=== PATIENT | male | born 1960 | race Caucasian/White ===

== ENCOUNTER → 2016-08-17 | Outpatient (CLI) | payer BC ==
[~2016-08-17] MED LIST: ALEV220C2 PO; CIPR500T89 PO; EXTR500C4 PO; HYDR-3713 PO; HYDR10TAB PO; ISOS60TA2 PO; NICO14PA TD; OXYC-517 PO; PROBCAP4 PO
== END ==
LOC: M HL 13:50
PROVIDERS: ATTEND Nurse Practitioner Family
DX: E11.8 Type 2 diabetes mellitus with unspecified complications (principal)

== ENCOUNTER → 2017-03-12 | Outpatient (CLI) | payer BC ==
[~2017-03-12] MED LIST changes: +CIPR-249 PO; -CIPR500T89 PO
[2017-03-12 08:20] LABS: ALBUMIN 3.7 GM/DL (3.2-5.2); ALBUMIN/GLOBULIN RATIO 1.12 (1.00-1.93); ALKALINE PHOSPHATASE 95 U/L (45-117); ALT/SGPT 40 U/L (12-78); ANION GAP 7 MEQ/L (8-16); AST/SGOT 25 U/L (15-37); BILIRUBIN,TOTAL 0.3 MG/DL (0.2-1.0); BLOOD UREA NITROGEN 21 MG/DL (7-18); CALCIUM LEVEL 9.7 MG/DL (8.5-10.1); CARBON DIOXIDE LEVEL 26 MEQ/L (21-32); CHLORIDE LEVEL 108 MEQ/L (98-107); CHOLESTEROL LEVEL 118 MG/DL (<200); CREATININE FOR GFR 0.73 MG/DL (0.70-1.30); GLOMERULAR FILTRATION RATE > 60.0 (>56); GLUCOSE, FASTING 82 MG/DL (70-105); POTASSIUM SERUM 4.2 MEQ/L (3.5-5.1); SODIUM LEVEL 141 MEQ/L (136-145); TRIGLYCERIDES LEVEL 47 MG/DL (<150)
== END ==
LOC: M LAB 07:15
PROVIDERS: ATTEND Nurse Practitioner Family
DX: E11.8 Type 2 diabetes mellitus with unspecified complications (principal)

== ENCOUNTER → 2017-05-30 | Outpatient (CLI) | payer BC ==
[2017-05-30 09:16] LABS: ALBUMIN 3.7 GM/DL (3.2-5.2); ALBUMIN/GLOBULIN RATIO 1.06 (1.00-1.93); ALKALINE PHOSPHATASE 109 U/L (45-117); ALT/SGPT 38 U/L (12-78); ANION GAP 7 MEQ/L (8-16); AST/SGOT 23 U/L (7-37); BILIRUBIN,TOTAL 0.3 MG/DL (0.2-1.0); BLOOD UREA NITROGEN 18 MG/DL (7-18); CALCIUM LEVEL 10.7 MG/DL (8.5-10.1); CARBON DIOXIDE LEVEL 29 MEQ/L (21-32); CHLORIDE LEVEL 107 MEQ/L (98-107); CREATININE FOR GFR 0.75 MG/DL (0.70-1.30); GLOMERULAR FILTRATION RATE > 60.0 (>56); GLUCOSE, FASTING 84 MG/DL (70-105); POTASSIUM SERUM 4.3 MEQ/L (3.5-5.1); SODIUM LEVEL 143 MEQ/L (136-145); TOTAL PROTEIN 7.2 GM/DL (6.4-8.2)
== END ==
LOC: M LAB 07:09
PROVIDERS: ATTEND Nurse Practitioner Family
DX: E11.9 Type 2 diabetes mellitus without complications (principal); E55.9 Vitamin D deficiency, unspecified

== ENCOUNTER → 2018-04-06 | Outpatient (CLI) | payer BC ==
[2018-04-06 11:04] LABS: ALBUMIN 3.8 GM/DL (3.2-5.2); ALBUMIN/GLOBULIN RATIO 1.19 (1.00-1.93); ALKALINE PHOSPHATASE 97 U/L (45-117); ALT/SGPT 48 U/L (12-78); ANION GAP 6 MEQ/L (8-16); BILIRUBIN,TOTAL 0.4 MG/DL (0.2-1.0); BLOOD UREA NITROGEN 18 MG/DL (7-18); CALCIUM LEVEL 10.2 MG/DL (8.5-10.1); CARBON DIOXIDE LEVEL 31 MEQ/L (21-32); CHLORIDE LEVEL 105 MEQ/L (98-107); CHOLESTEROL LEVEL 106 MG/DL (<200); CHOLESTEROL RISK RATIO 1.709 (<5); CREATININE FOR GFR 0.74 MG/DL (0.70-1.30); FREE T4 0.83 NG/DL (0.76-1.46); GLOMERULAR FILTRATION RATE > 60.0 (>56); GLUCOSE, FASTING 89 MG/DL (70-100); HDL CHOLESTEROL 62 MG/DL (>40); LDL CHOLESTEROL 33 MG/DL (<100); NON-HDL-C 44 MG/DL; SODIUM LEVEL 142 MEQ/L (136-145); THYROID STIMULATING HORMONE 0.968 uIU/ML (0.358-3.740); TOTAL 25(OH) VITAMIN D 53.2 NG/ML (30.0-100.0); TRIGLYCERIDES LEVEL 53 MG/DL (<150)
[2018-04-06 11:14] LABS: MALB URINE SIEMENS 26.6 MG/L
[2018-04-06 11:29] LABS: MAU/CREAT RATIO 22.5 MCG/MG (0.0-30.0)
[2018-04-06 11:30] LABS: ESTIMATED AVERAGE GLUCOSE 128 MG/DL (60-110); HEMOGLOBIN A1c 6.1 %
[2018-04-06 11:35] LABS: AST/SGOT 29 U/L (7-37); POTASSIUM SERUM 5.1 MEQ/L (3.5-5.1)
== END ==
LOC: M LAB 08:23
DX: E11.9 Type 2 diabetes mellitus without complications (principal); E78.00 Pure hypercholesterolemia, unspecified; E55.9 Vitamin D deficiency, unspecified
CPT/HCPCS: 84443

== ENCOUNTER → 2018-04-20 | Outpatient (REF) ==
[2018-04-23 14:07] LABS: QuantiFERON-TB Gold Plus Positive (Negative)
== END ==
LOC: M LAB 16:19
DX: Z02.89 Encounter for other administrative examinations (principal)

== ENCOUNTER → 2018-05-05 | Outpatient (CLI) | payer BC | LOC: M RAD 09:02 | DX: R76.11 Nonspecific reaction to tuberculin skin test without active tuberculosis (principal) | CPT/HCPCS: 71046 ==

== ENCOUNTER → 2018-11-09 | Outpatient (CLI) | payer BC ==
[~2018-11-09] MED LIST changes: +HYDR-2773 PO; -HYDR10TAB PO
[2018-11-09 07:27] LABS: ALBUMIN 3.7 GM/DL (3.2-5.2); ALT/SGPT 38 U/L (12-78); BILIRUBIN,TOTAL 0.6 MG/DL (0.2-1.0); BLOOD UREA NITROGEN 14 MG/DL (7-18); CALCIUM LEVEL 10.3 MG/DL (8.5-10.1); CARBON DIOXIDE LEVEL 28 MEQ/L (21-32); CHLORIDE LEVEL 107 MEQ/L (98-107); CREATININE FOR GFR 0.85 MG/DL (0.70-1.30); GLOMERULAR FILTRATION RATE > 60.0 (>56); GLUCOSE, FASTING 95 MG/DL (70-100); POTASSIUM SERUM 4.7 MEQ/L (3.5-5.1); SODIUM LEVEL 139 MEQ/L (136-145); TOTAL PROTEIN 7.6 GM/DL (6.4-8.2)
[2018-11-09 07:35] LABS: HEMOGLOBIN A1c 6.6 %
== END ==
LOC: M LAB 06:17
PROVIDERS: ATTEND Nurse Practitioner Family
DX: E11.9 Type 2 diabetes mellitus without complications (principal); E55.9 Vitamin D deficiency, unspecified

== ENCOUNTER → 2018-11-10 | Outpatient (CLI) | payer BC ==
--- NOTE | 2018-11-10 18:03 | REP ---
CT abdomen and pelvis without IV or oral contrast: History: Left flank pain. Stone protocol. Comparison CT study December 04, 2015. CT findings: Preliminary digital senior examiner radiograph demonstrates an unremarkable bowel gas pattern. Referral Clerk view and axial CT images demonstrate extensive bibasilar pulmonary interstitial fibrosis. The similar to findings from December 04, 2015. There is minimal diffuse fatty infiltration of the liver. No focal liver mass lesion is seen. Spleen is unremarkable. No adrenal lesion is seen. The pancreas and gallbladder show no abnormality. There are bilateral intrarenal kidney stones. The largest of these is in the renal pelvis on the left measuring 17 mm in greatest diameter. There is mural thickening around the stone in the renal pelvis. There are multiple smaller stones in the upper and lower pole of each kidney. No definite hydronephrosis is seen. No bladder calculus is observed. Prostate is mildly prominent. Seminal vesicles are intact. Mild diffuse bladder wall thickening is seen. Normal appendix is noted. Some vascular calcification is observed. Impression: Bilateral intrarenal nephrolithiasis. The largest stone is in the renal pelvis on the left side measuring 17 mm in greatest diameter. There are multiple smaller stones bilaterally. No definite hydronephrosis seen. Diffuse interstitial pulmonary fibrosis is seen at the lung bases. Electronically Signed by Danny Rodriguez MD 11/10/2018 08:07 P
== END ==
LOC: M RAD 16:34
PROVIDERS: ATTEND Nurse Practitioner Family
DX: N20.0 Calculus of kidney (principal)

== ENCOUNTER 2018-11-30 07:58 | Emergency (ER) | payer BC ==
[~2018-11-30] VITALS: Ht 188 cm; Wt 97.3 kg
[~2018-11-30 07:58] MED LIST changes: -ASPI81TA85 PO; -ATOR80TA59 PO; -CVS1CAP2 PO; -METF500T4 PO; -NORC1TAB7 PO; -OXYC1TAB23 PO; -VITA500045
[2018-11-30] MEDS ORDERED: METF500T4 PO (08:06)
[2018-11-30] MEDS ORDERED: ATOR80TA59 PO (08:06)
[2018-11-30] MEDS ORDERED: VITA500045 (08:06)
[2018-11-30] MEDS ORDERED: ONDANSETRON 4MG/2ML VIAL (J2405) IV ONE (08:45)
[2018-11-30] MEDS ORDERED: NS 1,000 ML IV ONE (08:45)
[2018-11-30 08:57] LABS: BASO % 0.4 % (0.0-1.0); EOS # 0.2 10^3/uL (0.0-0.50); EOS % 3.2 % (0.0-3.0); HEMATOCRIT 42.6 % (42.0-52.0); HEMOGLOBIN 13.7 g/dl (13.5-17.5); LYMPH # 1.6 10^3/uL (1.5-4.5); LYMPH % 21.8 % (24.0-44.0); MEAN CORPUSCULAR HEMOGLOBIN 27.7 pg (27.0-33.0); MEAN CORPUSCULAR HGB CONC 32.2 g/dl (32.0-36.5); MEAN CORPUSCULAR VOLUME 86.1 fl (80.0-96.0); MONO # 0.6 10^3/uL (0.0-0.8); MONO % 8.5 % (0.0-5.0); NEUTROPHILS # 4.7 10^3/uL (1.8-7.7); NEUTROPHILS % 65.4 % (36.0-66.0); PLATELET COUNT, AUTOMATED 266 10^3/uL (150-450); RED BLOOD COUNT 4.95 10^6/uL (4.30-6.10); WHITE BLOOD COUNT 7.2 10^3/uL (4.0-10.0)
[2018-11-30] MEDS ORDERED: KETOROLAC 30 MG/ML VIAL (J1885) IV ONE (09:15)
[2018-11-30 09:21] LABS: ALBUMIN 3.6 GM/DL (3.2-5.2); ALT/SGPT 43 U/L (12-78); BILIRUBIN,DIRECT < 0.1 MG/DL (0.0-0.2); BILIRUBIN,TOTAL 0.2 MG/DL (0.2-1.0); LIPASE 88 U/L (73-393); TOTAL PROTEIN 6.7 GM/DL (6.4-8.2)
--- NOTE | 2018-11-30 09:36 | REP ---
CT ABDOMEN AND PELVIS WITHOUT IV OR ORAL CONTRAST: Renal stone protocol. HISTORY: Left flank pain. History stones. Comparison CT study November 10, 2018. CT FINDINGS: Preliminary instrument panel assembler radiograph demonstrate a larger left renal pelvic calculus as previously seen. Bowel gas pattern is unremarkable. The lung bases show a moderate pattern of scattered interstitial fibrosis and alveolar ground-glass opacity in the bases bilaterally consistent with fairly advanced COPD. No pleural effusion is seen. These parenchymal changes are stable when compared with the November 10, 2018 study. Bilateral intrarenal nephrolithiasis is again noted. The above described renal pelvic calculus is again seen. This measures 18 mm in greatest diameter. There is minimal fullness of the intrarenal collecting system. The left ureter does not appear to be dilated. No ureteral calculus is observed. There is no hydronephrosis on the right. Multiple stones are seen within the right collecting system. The right ureter is not dilated. No right ureteral calculus is seen. No bladder calculus noted. Prostate and seminal vesicles are unremarkable. Normal appendix is seen coursing to the midline. There is minimal fatty infiltration of the liver. No other significant finding. IMPRESSION: Bilateral intrarenal nephrolithiasis persists including a renal pelvic stone on the left measuring 18 mm in greatest diameter today. Multiple intrarenal stones are seen bilaterally. Minimal fullness of the intrarenal collecting system on the left. No hydroureter. Findings quite similar to the November 10, 2018 study. Diffuse interstitial fibrosis of the lungs again seen. Electronically Signed by Danny Rodriguez MD 11/30/2018 02:33 P
[2018-11-30] MEDS ORDERED: CIPR-249 PO (11:01)
[2018-11-30] MEDS ORDERED: NORC1TAB7 PO ×2 (11:02→11:13)
[2018-11-30 11:23] VITALS: BP 124/68
[2018-12-04] MEDS ORDERED: ASPI81TA85 PO (14:32)
[2018-12-04] MEDS ORDERED: CVS1CAP2 PO (14:32)
== END 2018-11-30 11:24 | disposition home or self-care (01) ==
LOC: M ED 07:58
DX: N20.0 Calculus of kidney (principal); N39.0 Urinary tract infection, site not specified; R11.0 Nausea; E11.9 Type 2 diabetes mellitus without complications; Z87.442 Personal history of urinary calculi; F17.210 Nicotine dependence, cigarettes, uncomplicated; Z79.899 Other long term (current) drug therapy
CPT/HCPCS: 74176; 80047; 80076; 81001; 83690; 85025; 87086; 96374; 96375; 99284; J1885; J2405

== ENCOUNTER → 2018-11-30 | Outpatient (CLI) | payer BC ==
[~2018-11-30] MED LIST changes: +ASPI81TA85 PO; +ATOR80TA59 PO; +CVS1CAP2 PO; +METF500T4 PO; +NORC1TAB7 PO; +OXYC1TAB23 PO; +VITA500045
[2018-11-30 13:50] LABS: INR 0.91; PROTHROMBIN TIME 12.3 SECONDS (12.1-14.4)
[2018-11-30 13:51] LABS: PARTIAL THROMBOPLASTIN TIME 28.6 SECONDS (25.4-37.6)
--- NOTE | 2018-11-30 14:36 | REP ---
Clinical: Preoperative assessment. Technique: PA and lateral. Comparison: 05/05/2018. Findings: Mediastinum and cardiac silhouette are normal. Lung solis demonstrate diffuse chronic COPD and interstitial changes with chronic bibasilar fibrosis. No obvious acute consolidation. No effusion. No pneumothorax. Airway appears midline. Skeletal structures are intact. Impression: Chronic COPD and bibasilar fibrosis. Electronically Signed by Angel Lares MD 11/30/2018 02:27 P
--- NOTE | 2018-11-30 22:00 | ECGEPIP ---
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 Decrease heart rate compared with 11/03/2015. Electronically Signed on 11-30-2018 21:59:55 EDT by Luis Schultz
== END ==
LOC: M LAB 12:55
PROVIDERS: ATTEND Nurse Practitioner Family
DX: Z01.818 Encounter for other preprocedural examination (principal); N20.0 Calculus of kidney; J44.9 Chronic obstructive pulmonary disease, unspecified; J84.10 Pulmonary fibrosis, unspecified

== ENCOUNTER 2018-12-05 13:36 | Day surgery (SDC) | payer BC ==
[~2018-12-05] VITALS: Ht 190.5 cm; Wt 90.7 kg
[~2018-12-05 13:36] MED LIST changes: +ASPI81TA85 PO; +ATOR80TA59 PO; +CVS1CAP2 PO; +LR 1,000 ML IV SCH; +METF500T4 PO; +NORC1TAB7 PO; +VITA500045
[2018-12-05] MEDS ORDERED: LIDOCAINE 1% MDV 20ML VIAL SQ PRN (14:00)
[2018-12-05] MEDS ORDERED: OXYC1TAB23 PO (14:14)
[2018-12-05] MEDS ORDERED: fentaNYL 250 MCG/5 ML INJECTION (J3010) As Ordered ONE (15:10)
[2018-12-05] MEDS ORDERED: PROPOFOL 200 MG/20 ML VIAL As Ordered ONE (15:10)
[2018-12-05] MEDS ORDERED: LIDOCAINE 2% INJ 100 MG/5 ML SDV (FOR ANES.) As Ordered ONE (15:10)
[2018-12-05] MEDS ORDERED: MIDAZOLAM INJ 2 MG/2 ML VIAL (J2250) As Ordered ONE (15:10)
[2018-12-05] MEDS ORDERED: CONRAY-60 60% 50ML VIAL (Q9961) As Ordered ONE (15:56)
[2018-12-05] MEDS ORDERED: dexameTHASONE 4 MG/ML 1ML VIAL (J1100) As Ordered ONE (16:30)
[2018-12-05] MEDS ORDERED: ONDANSETRON 4MG/2ML VIAL (J2405) As Ordered ONE (16:40)
--- NOTE | 2018-12-05 18:18 | REP ---
RETROGRADE PYELOGRAM, THREE VIEWS: HISTORY: Nephrolithiasis. Three radiographs were obtained with a C-ARM. A small amount of contrast material is present in the left renal collecting system. The patient is status-post left ureteral stent placement. Fluoroscopy time 28 seconds. IMPRESSION:Retrograde pyelogram as described above. Electronically Signed by Edwin Hilario MD 12/05/2018 06:44 P
[2018-12-05] MEDS ORDERED: fentaNYL 100 MCG/2 ML INJECTION (J3010) IV PRN (18:30)
[2018-12-05] MEDS ORDERED: ONDANSETRON 4MG/2ML VIAL (J2405) IV PRN (18:30)
[2018-12-05] MEDS ORDERED: PERCOCET 5MG/325MG TAB PO PRN ×2 (18:30)
[2018-12-05] MEDS ORDERED: LR 1,000 ML IV SCH (18:30)
[2018-12-05] MEDS ORDERED: METOCLOPRAMIDE INJ 10MG/2ML VIAL (J2765) IV PRN (18:30)
--- NOTE | 2018-12-05 18:56 | RO ---
DATE OF PROCEDURE: 12/05/2018 PREPROCEDURE DIAGNOSIS: Left kidney stones. POSTPROCEDURE DIAGNOSIS: Left kidney stones. PROCEDURE: Cystoscopy, left ureteroscopy with laser lithotripsy and basket extraction of stones, left retrograde pyelogram with intraoperative interpretation of images, left ureteral stent placement. SURGEON: Price Nicholson MD COMPUTER SYSTEMS ENGINEER: None. ANESTHESIA: General. OPERATIVE INDICATIONS: This is a 58-year-old male who was found to have an approximately 1.5 cm left renal pelvis stone as well as a few other small stones in the left kidney. He was brought to the operating room today for the above listed procedure. DESCRIPTION OF PROCEDURE: The patient was brought to the operating room and general anesthesia was induced. Prophylactic antibiotics were infused. He was then placed in the dorsal lithotomy position and prepped and draped in the usual sterile fashion. A rigid cystoscope was then inserted into the urethral meatus and advanced into the bladder. Once inside the bladder, a guidewire was advanced up the left collecting system. I then advanced a ureteral access sheath up the left collecting system. I then went up the access sheath with a flexible ureteroscope and within the left renal pelvis, the 1.5 cm stone was seen. The stone was then fragmented into several smaller pieces using 272 Micron laser fiber. All the larger fragments were then removed using a basket. I kept doing this until the kidney was free of any visible large stone fragments. Once done, only very tiny stone fragments remained that should be small enough to pass. A retrograde pyelogram was then performed and was notable for moderate left hydronephrosis, no extravasation. I then withdrew the ureteroscope along with the access sheath and no additional stones were seen within the ureter. I then advanced a 6 Yi x 22-32 cm JJ ureteral stent up to the left collecting system and the wire was then removed. Once that was done, there were adequate curls of the stent in the left renal pelvis and in the bladder. The bladder was emptied of all fluids. This marked the conclusion of the procedure. The patient was then taken out of the dorsal lithotomy position, awakened from anesthesia and transported to the recovery room in stable condition. ESTIMATED BLOOD LOSS: 10 mL COMPLICATIONS: None SPECIMENS: Kidney stone fragments. PLAN: The patient will followup in the clinic in a few weeks for stent removal. We will get a KUB prior to removing the stent.
[2018-12-05 19:25] VITALS: BP 162/90
[2018-12-06] MEDS ORDERED: LR 1,000 ML IV ONE (07:00)
== END 2018-12-05 19:46 | disposition home or self-care (01) ==
LOC: M SDC 13:36
PROVIDERS: ATTEND Urology
DX: N20.0 Calculus of kidney (principal); E11.9 Type 2 diabetes mellitus without complications; E78.5 Hyperlipidemia, unspecified; Z79.84 Long term (current) use of oral hypoglycemic drugs; Z79.82 Long term (current) use of aspirin; F17.210 Nicotine dependence, cigarettes, uncomplicated
CPT/HCPCS: 52356; 74420; 82360; 88300; C1769; C1894; C2617; J0690; J1100; J2250; J2405; J3010; Q9961

== ENCOUNTER → 2018-12-19 | Outpatient (CLI) | payer BC ==
[~2018-12-19] MED LIST changes: -LR 1,000 ML IV SCH; +OXYC1TAB23 PO
--- NOTE | 2018-12-19 15:42 | REP ---
Supine abdomen single AP view: There are no comparisons. There is a left ureteral stent with the proximal and distal pigtails in satisfactory positions. The bowel gas pattern is normal. There are no calcifications. There is a large bridging osteophyte along the left lateral margin of the L2-3 vertebral bodies. 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 Impression: Left ureteral stent as described. Electronically Signed by Timothy Devries MD 12/19/2018 03:34 P
== END ==
LOC: M SMT 14:23
PROVIDERS: ATTEND Urology
DX: Z96.0 Presence of urogenital implants (principal)

== ENCOUNTER → 2019-06-19 | Outpatient (CLI) | payer BC ==
[~2019-06-19] MED LIST changes: +METF-791 PO; -METF500T4 PO
[2019-06-19 11:26] LABS: HEMOGLOBIN A1c 5.9 %
[2019-06-19 11:39] LABS: ALT/SGPT 40 U/L (12-78); BILIRUBIN,TOTAL 0.3 MG/DL (0.2-1.0); BLOOD UREA NITROGEN 21 MG/DL (7-18); CARBON DIOXIDE LEVEL 30 MEQ/L (21-32); CHLORIDE LEVEL 107 MEQ/L (98-107); CHOLESTEROL LEVEL 139 MG/DL (<200); CHOLESTEROL RISK RATIO 1.828 (<5); CREATININE FOR GFR 0.95 MG/DL (0.70-1.30); GLOMERULAR FILTRATION RATE > 60.0 (>56); GLUCOSE, FASTING 97 MG/DL (70-100); HDL CHOLESTEROL 76 MG/DL (>40); LDL CHOLESTEROL 51 MG/DL (<100); NON-HDL-C 63 MG/DL; SODIUM LEVEL 141 MEQ/L (136-145); TOTAL PROTEIN 7.8 GM/DL (6.4-8.2); TRIGLYCERIDES LEVEL 58 MG/DL (<150)
[2019-06-19 11:47] LABS: MAU/CREAT RATIO 183.7 MCG/MG (0.0-30.0); TOTAL 25(OH) VITAMIN D 46.7 NG/ML (30.0-100.0)
== END ==
LOC: M PLALAB 08:07
PROVIDERS: ATTEND Nurse Practitioner Family
DX: E11.8 Type 2 diabetes mellitus with unspecified complications (principal); E78.00 Pure hypercholesterolemia, unspecified; E55.9 Vitamin D deficiency, unspecified

== ENCOUNTER → 2019-06-19 | Outpatient (CLI) | payer BC ==
--- NOTE | 2019-06-19 08:57 | REPPI ---
KUB: Two views. History: Nephrolithiasis. Comparison study December 19, 2018. Findings: There is a 17 mm oval-shaped calcific opacity projecting over the renal pelvis region on the left. This was not apparent on December 19, 2018. However, it was visible in the renal pelvis on CT study from November 30, 2018. It may have been encircled and superimposed by the proximal loop of the double pigtail stent in place at the time of the December 19, 2018 study. Bowel gas overlies the kidneys. No other urinary tract calculus is visible today. Psoas margins and flank stripes are intact. Impression: Large renal pelvic stone on the left. Electronically Signed by Danny Rodriguez MD 06/19/2019 03:24 P
== END ==
LOC: M PLAIMG 08:18
PROVIDERS: ATTEND Urology
DX: N20.0 Calculus of kidney (principal)

== ENCOUNTER → 2019-06-20 | Outpatient (CLI) | payer BC | LOC: M PLALAB 12:45 | PROVIDERS: ATTEND Nurse Practitioner Family | DX: Z12.5 Encounter for screening for malignant neoplasm of prostate (principal) | CPT/HCPCS: 36415; G0103 ==

== ENCOUNTER → 2019-06-28 | Outpatient (CLI) | payer BC ==
--- NOTE | 2019-06-28 18:17 | REP ---
CT ABDOMEN AND PELVIS WITHOUT CONTRAST: CT abdomen and pelvis was performed without oral or IV contrast. Sagittal and coronal reconstruction images are performed. Comparison is made with prior study of 11/30/2018. Visualized lung bases demonstrate stable moderate fibrotic changes. Liver, spleen, adrenals and pancreas are grossly unremarkable. Right kidney demonstrates mild hydronephrosis. There is a calculus in the right renal pelvis which measures approximately 7 x 5 mm. Two calculi in the right lower pole collecting system measure only a couple of millimeters. No right ureteral calculi are seen. Left kidney demonstrates very mild fullness of the pelvicaliceal system. There is an oval calculus in the left renal pelvis which measures 14 x 10 mm as seen on prior study. In the upper pole collecting system there are three very small calculi, the largest 3 mm in diameter. In the left lower pole collecting system there is a cluster of small calculi, 3-4 measuring about 4 mm in diameter. No left ureteral calculus is seen. Urinary bladder is very mildly distended with no calculus. There is mild atherosclerotic calcification of the abdominal aorta without aneurysm. No adenopathy, free air or free fluid is seen. No bowel wall thickening is seen. No pelvic mass is seen. IMPRESSION: Bilateral renal calculi as above. A calculus is seen in the renal pelvis bilaterally. There is mild right hydronephrosis. There is very mild fullness of the left pelvicaliceal system. No ureteral or bladder calculus. Electronically Signed by Timothy Cruz MD 06/28/2019 06:22 P
== END ==
LOC: M RAD 16:38
PROVIDERS: ATTEND Nurse Practitioner Family
DX: N13.30 Unspecified hydronephrosis (principal); N20.0 Calculus of kidney

== ENCOUNTER → 2019-07-27 | Outpatient (CLI) | payer BC ==
[~2019-07-27] MED LIST changes: +VITA50005 PO
[2019-07-27 06:54] LABS: HEMATOCRIT 43.6 % (42.0-52.0); HEMOGLOBIN 13.9 g/dl (13.5-17.5); MEAN CORPUSCULAR HEMOGLOBIN 27.5 pg (27.0-33.0); MEAN CORPUSCULAR HGB CONC 31.9 g/dl (32.0-36.5); MEAN CORPUSCULAR VOLUME 86.2 fl (80.0-96.0); PLATELET COUNT, AUTOMATED 306 10^3/uL (150-450); RED BLOOD COUNT 5.06 10^6/uL (4.30-6.10); WHITE BLOOD COUNT 6.9 10^3/uL (4.0-10.0)
[2019-07-27 07:04] LABS: APPEARANCE, URINE HAZY (CLEAR); BACTERIA, URINE AUTO NEGATIVE (NEGATIVE); BILIRUBIN, URINE AUTO NEGATIVE (NEGATIVE); BLOOD, URINE BLOOD 3+ (NEGATIVE); COLOR, URINE YELLOW (YELLOW); GLUCOSE, URINE (UA) AUTO NEGATIVE (NEGATIVE); KETONE, URINE AUTO NEGATIVE (NEGATIVE); LEUKOCYTE ESTERASE, URINE AUTO 3+ (NEGATIVE); MUCUS, URINE SMALL (NEGATIVE); NITRITE, URINE AUTO NEGATIVE (NEGATIVE); PROTEIN, URINE AUTO 1+ mg/dL (NEGATIVE); RBC, URINE AUTO TNTC /HPF (0-3); SPECIFIC GRAVITY URINE AUTO 1.015 (1.002-1.035); SQUAMOUS EPITHELIAL CELL UR AU 0 /HPF (0-6); UROBILINOGEN, URINE AUTO 0.2 mg/dL (0.0-2.0); WBC, URINE AUTO 46 /HPF (0-3)
[2019-07-27 07:08] LABS: PROTHROMBIN TIME 12.9 SECONDS (11.8-14.0)
[2019-07-27 07:09] LABS: PARTIAL THROMBOPLASTIN TIME 31.5 SECONDS (25.0-38.4)
[2019-07-27 07:23] LABS: BLOOD UREA NITROGEN 20 MG/DL (7-18); CALCIUM LEVEL 10.3 MG/DL (8.5-10.1); CARBON DIOXIDE LEVEL 30 MEQ/L (21-32); CHLORIDE LEVEL 107 MEQ/L (98-107); CREATININE FOR GFR 0.87 MG/DL (0.70-1.30); GLOMERULAR FILTRATION RATE > 60.0 (>56); GLUCOSE, FASTING 105 MG/DL (70-100); POTASSIUM SERUM 4.4 MEQ/L (3.5-5.1); SODIUM LEVEL 141 MEQ/L (136-145)
--- NOTE | 2019-07-27 08:44 | REP ---
Chest x-ray: Two views. History: Nephrolithiasis. Preop testing. Comparison chest x-ray: November 30, 2018. Comparison CT study 06/28/2019. Findings: There is bibasilar interstitial fibrosis pattern in the lower lobes of the lungs similar to the 06/28/2019 and November 30, 2018 prior studies. The upper lobes are essentially clear. Heart is not enlarged. Pleural angles are sharp. Impression: Moderate bibasilar interstitial pulmonary fibrosis pattern. No acute disease seen. Electronically Signed by Danny Rodriguez MD 07/27/2019 08:52 A
--- NOTE | 2019-07-28 08:07 | ECGEPIP ---
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
== END ==
LOC: M LAB 06:22
PROVIDERS: ATTEND Nurse Practitioner Family
DX: Z01.818 Encounter for other preprocedural examination (principal); N20.0 Calculus of kidney; J84.89 Other specified interstitial pulmonary diseases

== ENCOUNTER → 2019-08-01 | Outpatient (CLI) | payer BC ==
[2019-08-01 13:41] LABS: BLOOD UREA NITROGEN 21 MG/DL (7-18); CALCIUM LEVEL 11.1 MG/DL (8.5-10.1); CARBON DIOXIDE LEVEL 29 MEQ/L (21-32); CHLORIDE LEVEL 109 MEQ/L (98-107); CREATININE FOR GFR 0.87 MG/DL (0.70-1.30); GLOMERULAR FILTRATION RATE > 60.0 (>56); GLUCOSE, FASTING 87 MG/DL (70-100); POTASSIUM SERUM 5.1 MEQ/L (3.5-5.1); SODIUM LEVEL 141 MEQ/L (136-145)
[2019-08-01 13:48] LABS: PTH INTACT 62.8 PG/ML (18.5-88.0)
== END ==
LOC: M PLALAB 09:04
PROVIDERS: ATTEND Family Medicine
DX: E83.52 Hypercalcemia (principal)

== ENCOUNTER 2019-08-06 07:24 | Day surgery (SDC) | payer BC ==
[~2019-08-06] VITALS: Ht 190.5 cm; Wt 91.6 kg
[~2019-08-06 07:24] MED LIST changes: +LR 1,000 ML IV ONE; +ceFAZolin SOD 2 GM in IV 1 EA IV ONE
[2019-08-06] MEDS ORDERED: MIDAZOLAM INJ 2 MG/2 ML VIAL (J2250) As Ordered ONE (08:28)
[2019-08-06] MEDS ORDERED: propofoL 200 MG/20 ML VIAL As Ordered ONE ×2 (08:28→12:01)
[2019-08-06] MEDS ORDERED: LIDOCAINE 2% INJ 100 MG/5 ML SDV (FOR ANES.) As Ordered ONE (08:28)
[2019-08-06] MEDS ORDERED: fentaNYL 100 MCG/2 ML INJECTION (J3010) As Ordered ONE (08:29)
[2019-08-06] MEDS ORDERED: CONRAY-60 60% 50ML VIAL (Q9961) As Ordered ONE (08:48)
[2019-08-06] MEDS ORDERED: ACETAMINOPHEN 1000MG 100ML IV BTL (OFIRMEV) (J0131 PER 10MG) As Ordered ONE (10:01)
[2019-08-06] MEDS ORDERED: ONDANSETRON 4MG/2ML VIAL (J2405) As Ordered ONE (10:01)
[2019-08-06] MEDS ORDERED: HYDROmorphone HCL 2 MG/ML 1ML VIAL (J1170) As Ordered ONE (10:01)
[2019-08-06] MEDS ORDERED: dexameTHASONE 4 MG/ML 1ML VIAL (J1100) As Ordered ONE (10:01)
[2019-08-06] MEDS ORDERED: LABETALOL HCL 100 MG/20 ML VIAL As Ordered ONE (10:39)
[2019-08-06] MEDS ORDERED: ONDANSETRON 4MG/2ML VIAL (J2405) IV PRN (12:15)
[2019-08-06] MEDS ORDERED: fentaNYL 100 MCG/2 ML INJECTION (J3010) IV PRN (12:15)
[2019-08-06] MEDS ORDERED: HYDROMORPHONE HCL 0.5 MG/ 0.5 ML SYRINGE (J1170 PER 1) IV PRN (12:15)
[2019-08-06] MEDS ORDERED: PERCOCET 5MG/325MG TAB PO PRN ×2 (12:15)
[2019-08-06] MEDS ORDERED: LR 1,000 ML IV SCH (12:15)
[2019-08-06 12:30] VITALS: BP 168/84
--- NOTE | 2019-08-06 21:34 | RO ---
DATE OF PROCEDURE: 08/06/2019 PREPROCEDURE DIAGNOSIS: Bilateral kidney stones. POSTPROCEDURE DIAGNOSIS: Bilateral kidney stones. PROCEDURE: Cystoscopy, bilateral ureteroscopy with laser lithotripsy and basket extraction of stones, bilateral retrograde pyelogram with intraoperative interpretation of images, bilateral ureteral stent placement. SURGEON: Dr. Price Nicholson BULL BUCKER: None. ANESTHESIA: General. OPERATIVE INDICATIONS: This is a 58-year-old male with bilateral kidney stones. He was brought to the operating room today for the above listed procedure. DESCRIPTION OF PROCEDURE: The patient was brought to the operating room, where general anesthesia was induced. Prophylactic antibiotics were infused. He was then placed in the dorsal lithotomy position and prepped and draped in the usual sterile fashion. A rigid cystoscope was then inserted into the urethral meatus and advanced into the bladder. Once in the bladder, a guidewire was advanced up the left collecting system. I then advanced a ureteral access sheath up the left collecting system. I went up the access sheath with a flexible ureteroscope and within the left renal pelvis an approximately 1.2 cm stone was seen. The stone was fragmented into smaller pieces using a 200 micron laser fiber. All the fragments were then removed using a basket. I then examined the left kidney thoroughly and only very tiny stone fragments remained. These fragments were small enough to pass on their own. At this point, a retrograde pyelogram was performed, notable for mild left hydronephrosis with no extravasation. I then withdrew the uteroscope along with access sheath and no additional stones were seen within the ureter. I then utilized the previously placed wire to advance a 6 Khmer x 22-32 cm JJ ureteral stent up into the left collecting system. The wire was removed and there were adequate curls of the stent in the left renal pelvis and in the bladder. I then advanced a guidewire up the right collecting system. I advanced a ureteral access sheath up the right collecting system. I went up the access sheath with a flexible ureteroscope and at the level of the right ureteropelvic junction an approximately 6 mm stone was seen. The stone was fragmented into smaller pieces using a 200 micron laser fiber and all fragments were removed using a basket. I then examined the remainder of the right kidney and only very tiny stone fragments were seen. A right retrograde pyelogram was performed and notable for mild right hydronephrosis with no extravasation. I then withdrew the ureteroscope along with access sheath and no additional stones were seen within the ureter. I then utilized the wire to advance a #6-Khmer x 22-32 cm JJ ureteral stent up the right collecting system. The wire was then removed, and there were adequate curls of the stent in the right renal pelvis and in the bladder. The bladder was then emptied of all fluid, and this marked the conclusion of the procedure. The patient was then taken out of the dorsal lithotomy position, awakened from anesthesia, and transported to the recovery room in stable condition. ESTIMATED BLOOD LOSS: 5 mL. COMPLICATIONS: None. SPECIMENS: Kidney stone fragments. PLAN: The patient will followup in the clinic in a few weeks for a stent removal. Of note, we will refer the patient to nephrology for medical management of kidney stones. CALE
--- NOTE | 2019-08-07 05:34 | REP ---
RETROGRADE PYELOGRAM, THREE VIEWS: History: Nephrolithiasis. 33 seconds of fluoroscopy time is reported. Findings: A sequence of three last image hold fluoroscopically obtained spot radiographs of the abdomen document what appears to be right ureteral stent procedure. No laterality markers are visible. Electronically Signed by Danny Rodriguez MD 08/07/2019 08:15 A
== END 2019-08-06 12:37 | disposition home or self-care (01) ==
LOC: M SDC 07:24
PROVIDERS: ATTEND Urology
DX: N20.0 Calculus of kidney (principal); E11.9 Type 2 diabetes mellitus without complications; Z79.82 Long term (current) use of aspirin; Z79.84 Long term (current) use of oral hypoglycemic drugs; Z79.899 Other long term (current) drug therapy; F17.218 Nicotine dependence, cigarettes, with other nicotine-induced disorders
CPT/HCPCS: 52356; 74420; 82360; 88300; C1769; C1894; C2617; J0131; J0690; J1100; J1170; J2250; J2405; J3010; Q9961

== ENCOUNTER → 2019-08-30 | Outpatient (REF) | payer BC ==
[~2019-08-30] MED LIST changes: -LR 1,000 ML IV ONE; -ceFAZolin SOD 2 GM in IV 1 EA IV ONE
[2019-08-30 13:45] LABS: CALCIUM, URINE 14.4 MG/DL
== END ==
LOC: M SFHCPLAZ 12:50
PROVIDERS: ATTEND Nurse Practitioner Family
DX: E83.52 Hypercalcemia (principal)

== ENCOUNTER → 2019-09-12 | Outpatient (REF) | payer BC ==
[2019-09-12 18:53] LABS: C REACTIVE PROTEIN QUANTITATIV < 0.30 MG/DL (0.00-0.30); RHEUMATOID FACTOR QUANT < 10.0 IU/ML (<15.0)
== END ==
LOC: M LAB REF 18:19
PROVIDERS: ATTEND Internal Medicine Pulmonary Disease
DX: R91.8 Other nonspecific abnormal finding of lung field (principal)

== ENCOUNTER → 2019-09-24 | Outpatient (CLI) | payer BC ==
--- NOTE | 2019-09-26 14:09 | REP ---
Clinical: Abnormal lung findings. Technique: Axial high-resolution inspiration and expiration images performed prone and supine through the chest from the thoracic inlet to the upper abdomen. Findings: Diffuse moderate bronchiectasis is appreciated along with moderate scattered primarily basilar areas of fibrosis. Moderate mediastinal and hilar adenopathy is suggested. No consolidation. No obvious focal nodule or mass. No pleural effusion. No pneumothorax. Impression: Diffuse interstitial disease with moderate scattered areas of basilar fibrosis. Pattern is nonspecific and is compatible with various interstitial pneumonitis Electronically Signed by Angel Lares MD 09/26/2019 02:01 P
== END ==
LOC: M RAD 14:55
PROVIDERS: ATTEND Internal Medicine Pulmonary Disease
DX: R91.8 Other nonspecific abnormal finding of lung field (principal)

== ENCOUNTER → 2019-10-27 | Outpatient (CLI) | payer BC ==
[2019-10-27 07:26] LABS: HEMOGLOBIN A1c 6.2 %
[2019-10-27 07:39] LABS: ALBUMIN 3.9 GM/DL (3.2-5.2); ALT/SGPT 51 U/L (12-78); BILIRUBIN,TOTAL 0.4 MG/DL (0.2-1.0); BLOOD UREA NITROGEN 25 MG/DL (7-18); CARBON DIOXIDE LEVEL 27 MEQ/L (21-32); CHLORIDE LEVEL 107 MEQ/L (98-107); CREATININE FOR GFR 0.96 MG/DL (0.70-1.30); GLOMERULAR FILTRATION RATE > 60.0 (>56); GLUCOSE, FASTING 101 MG/DL (70-100); POTASSIUM SERUM 4.3 MEQ/L (3.5-5.1); SODIUM LEVEL 140 MEQ/L (136-145); TOTAL PROTEIN 7.4 GM/DL (6.4-8.2)
[2019-10-27 07:51] LABS: MALB URINE SIEMENS 44.3 MG/L; MAU/CREAT RATIO 27.1 MCG/MG (0.0-30.0)
[2019-10-29 10:02] LABS: TOTAL 25(OH) VITAMIN D 23.4 NG/ML (30.0-100.0)
== END ==
LOC: M LAB 06:34
PROVIDERS: ATTEND Nurse Practitioner Family
DX: E11.9 Type 2 diabetes mellitus without complications (principal); E55.9 Vitamin D deficiency, unspecified

== ENCOUNTER → 2019-12-11 | Outpatient (CLI) | payer BC ==
[~2019-12-11] MED LIST changes: -METF-791 PO; +METF-838 PO
[2019-12-11 06:56] LABS: BASO # 0.1 10^3/uL (0.0-0.2); BASO % 0.8 % (0.0-1.0); EOS # 0.4 10^3/uL (0.0-0.5); EOS % 5.6 % (0.0-3.0); HEMATOCRIT 43.3 % (42.0-52.0); LYMPH # 2.3 10^3/uL (1.5-5.0); LYMPH % 37.6 % (24.0-44.0); MEAN CORPUSCULAR HEMOGLOBIN 27.8 pg (27.0-33.0); MEAN CORPUSCULAR HGB CONC 32.3 g/dl (32.0-36.5); MEAN CORPUSCULAR VOLUME 85.9 fl (80.0-96.0); MONO # 0.8 10^3/uL (0.0-0.8); MONO % 12.6 % (0.0-5.0); NEUTROPHILS # 2.7 10^3/uL (1.5-8.5); NEUTROPHILS % 42.9 % (36.0-66.0); PLATELET COUNT, AUTOMATED 221 10^3/uL (150-450); RED BLOOD COUNT 5.04 10^6/uL (4.30-6.10); WHITE BLOOD COUNT 6.2 10^3/uL (4.0-10.0)
[2019-12-11 07:18] LABS: INR 0.95; PROTHROMBIN TIME 12.4 SECONDS (11.8-14.0)
[2019-12-11 07:19] LABS: PARTIAL THROMBOPLASTIN TIME 29.2 SECONDS (25.0-38.4)
[2019-12-11 07:23] LABS: BLOOD UREA NITROGEN 20 MG/DL (7-18); CALCIUM LEVEL 9.5 MG/DL (8.5-10.1); CARBON DIOXIDE LEVEL 25 MEQ/L (21-32); CHLORIDE LEVEL 109 MEQ/L (98-107); CREATININE FOR GFR 0.79 MG/DL (0.70-1.30); GLOMERULAR FILTRATION RATE > 60.0 (>56); GLUCOSE, FASTING 103 MG/DL (70-100); SODIUM LEVEL 141 MEQ/L (136-145)
== END ==
LOC: M LAB 06:19
PROVIDERS: ATTEND Internal Medicine Pulmonary Disease
DX: Z01.812 Encounter for preprocedural laboratory examination (principal); R91.8 Other nonspecific abnormal finding of lung field

== ENCOUNTER → 2019-12-16 | Outpatient (CLI) | payer BC | LOC: M LABSMTC 10:57 | PROVIDERS: ATTEND Anesthesiology | DX: Z03.818 Encounter for observation for suspected exposure to other biological agents ruled out (principal); Z11.59 Encounter for screening for other viral diseases | CPT/HCPCS: C9803; U0003 ==

== ENCOUNTER 2019-12-19 08:13 | Day surgery (SDC) | payer BC ==
[~2019-12-19] VITALS: Ht 190.5 cm; Wt 95.6 kg
[~2019-12-19 08:13] MED LIST changes: +LR 1,000 ML IV ONE; +MIDAZOLAM INJ 2MG/2ML VIAL (J2250 PER 1MG) As Ordered ONE; +ONDANSETRON 4MG/2ML VIAL As Ordered ONE; +ROCURONIUM BROMIDE 50 MG/5 ML VIAL As Ordered ONE; +SUGAMMADEX SODIUM 500 MG/5 ML VIAL (BRIDION) As Ordered ONE; +dexameTHASONE 4 MG/ML 1ML VIAL (J1100 PER 1MG) As Ordered ONE; +fentaNYL 100 MCG/2 ML INJECTION (J3010) As Ordered ONE; +propofoL 200 MG/20 ML VIAL As Ordered ONE
[2019-12-19] MEDS ORDERED: LIDOCAINE PRES-FREE 2% 10ML AMP As Ordered ONE (08:18)
[2019-12-19] MEDS ORDERED: CETACAINE SPRAY 5GM As Ordered ONE (08:27)
[2019-12-19] MEDS ORDERED: THROMBIN SOLN 20,000 UNITS KIT As Ordered ONE (08:27)
[2019-12-19] MEDS ORDERED: EPINEPHrine 1MG/10ML SYRINGE 1.5IN As Ordered ONE (08:28)
[2019-12-19] MEDS ORDERED: LIDOCAINE VISCOUS 2% SOLN 15ML UDC As Ordered ONE (08:28)
[2019-12-19] MEDS ORDERED: LIDOCAINE 1% SDV 30ML VIAL As Ordered ONE (08:28)
[2019-12-19] MEDS ORDERED: propofoL 200 MG/20 ML VIAL As Ordered ONE ×3 (10:16→10:30)
--- NOTE | 2019-12-19 10:55 | REP ---
Clinical: Lower lobe abnormality. Technique: Single intraoperative fluoroscopic imaging using portable C-arm technique. Findings: Tip of scope identified at the right lung base. No obvious abnormality identified by single fluoroscopic image. Total fluoroscopic time 1.1 seconds Electronically Signed by Angel Lares MD 12/19/2019 10:47 A
[2019-12-19] MEDS ORDERED: fentaNYL 100 MCG/2 ML INJECTION (J3010) IV PRN (11:15)
[2019-12-19] MEDS ORDERED: ONDANSETRON 4MG/2ML VIAL IV PRN (11:15)
[2019-12-19] MEDS ORDERED: LR 1,000 ML IV SCH (11:15)
[2019-12-19] MEDS ORDERED: oxyCODONE 5MG TAB PO PRN (11:15)
--- NOTE | 2019-12-19 11:27 | ROOR ---
Patient Name: Ralph Gamino Procedure Date: 12/19/2019 8:23 AM Date of : 1960 Admit Type: Outpatient Age: 59 Note Status: Finalized Attending MD: Rut Parks MD Procedure: Bronchoscopy Indications: Interstitial lung disease, Abnormal CT scan of chest Providers: Rut Parks MD (Doctor) Referring MD: 1. No Referring Physician 1. No Referring Physician, Admin. (Referring MD) Requesting Physician: Medicines: General Anesthesia, Cetacaine topical Complications: No immediate complications. Estimated blood loss: Minimal Procedure: Pre-Anesthesia Assessment: - Prior to the procedure, a History and Physical was performed, and patient medications and allergies were reviewed. The patient's tolerance of previous anesthesia was also reviewed. The risks and benefits of the procedure and the sedation options and risks were discussed with the patient. All questions were answered, and informed consent was obtained. Prior Anticoagulants: The patient has taken aspirin, last dose was day of procedure. ASA Grade Assessment: II - A patient with mild systemic disease. After reviewing the risks and benefits, the patient was deemed in satisfactory condition to undergo the procedure. The Bronchoscope was introduced through the mouth, via the endotracheal tube (the patient was intubated for the procedure) and advanced to the tracheobronchial tree of both lungs. The procedure was accomplished without difficulty. The patient tolerated the procedure well. Findings: The endotracheal tube is in good position. The visualized portion of the trachea is of normal caliber. The edward is sharp. The tracheobronchial tree was examined to at least the first subsegmental level. Bronchial anatomy are normal; there are no scant secretions. Bronchial mucosa showed pitting and webbing throughout. In the lower lobe segmental bronchi there were few scattered mucosal nodules An endobronchial ultrasound endoscope was utilized in order to assist with fine needle aspiration in the subcarinal area and in the left hilum. Transbronchial needle aspirations of a lymph node were performed in the subcarinal area and in the left hilum using an Olympus EBUS-TBNA 21 gauge needle and sent for routine cytology. The procedure was guided by ultrasound. Transbronchial needle aspiration technique was selected because the sampling site was not visible endoscopically. Bronchoalveolar lavage was performed in the BEE superior lingular segment (B4) and in the LLL superior segment (B6) of the lung and sent for cell count, bacterial culture, and fungal & AFB analysis and cytology. The return was blood-tinged. There were no mucoid plugs in the return fluid. Transbronchial biopsies of an area of infiltration were performed in the anterior basal segment of the right lower lobe using forceps and sent for histopathology examination. The procedure was guided by fluoroscopy. Transbronchial biopsy technique was selected because the sampling site was not visible endoscopically. Endobronchial biopsies of a mucosal nodule were performed in the anterior basal segment of the right lower lobe using a forceps and sent for histopathology examination. Endobronchial biopsies of a mucosal nodule were performed in the lateral basal segment of the left lower lobe using a forceps and sent for histopathology examination. Estimated blood loss: minimal. Impression: - Interstitial lung disease - Abnormal CT scan of chest - Endobronchial ultrasound was performed. - A transbronchial needle aspiration was performed of lymph nodes. - Bronchoalveolar lavage was performed. - Transbronchial lung biopsies were performed. - An endobronchial biopsy was performed in RLL. - An endobronchial biopsy was performed in LLL. Recommendation: - Await test results. Attending Participation: I personally performed the entire procedure. Rut Parks MD 12/19/2019 11:27:14 AM Number of Addenda: 0 Note Initiated On: 12/19/2019 8:23 AM
[2019-12-19 11:40] VITALS: BP 142/67
--- NOTE | 2019-12-19 11:51 | REP ---
PORTABLE CHEST X-RAY: Single sitting AP view. HISTORY: Patient status post bronchoscopy. COMPARISON CHEST X-RAY: July 27, 2019. FINDINGS: There is no evidence of pneumothorax or hydrothorax. Mediastinum is not widened. The aorta slightly tortuous. Bibasilar interstitial markings are increased as before. IMPRESSION: No complication seen. Electronically Signed by Danny Rodriguez MD 12/19/2019 05:13 P
[2019-12-19 11:57] LABS: COLOR PINK (COLORLESS); SOURCE LEFT LOWER LOBE
[2019-12-19 11:58] LABS: APPEARANCE HAZY (CLEAR)
[2019-12-19 12:16] LABS: APPEARANCE HAZY (CLEAR); COLOR RED (COLORLESS); SOURCE BRON ALVEOLAR LAVAGE
[2019-12-20 11:03] LABS: MONOCYTES/MACROPHAGES, BAL 25 %
[2019-12-20 13:51] LABS: MONOCYTES/MACROPHAGES, BAL 90 %
== END 2019-12-19 12:00 | disposition home or self-care (01) ==
LOC: M SDC 08:13
PROVIDERS: ATTEND Internal Medicine Pulmonary Disease
DX: J84.9 Interstitial pulmonary disease, unspecified (principal); R73.03 Prediabetes; Z79.82 Long term (current) use of aspirin; Z79.84 Long term (current) use of oral hypoglycemic drugs; Z79.899 Other long term (current) drug therapy
CPT/HCPCS: 31624; 31625; 31628; 31652; 71045; 76000; 87070; 87102; 87116; 87205; 87206; 88108; 88173; 88305; 88313; 89051; J1100; J2250; J2405; J3010

== ENCOUNTER 2020-02-08 12:20 | Day surgery (SDC) | payer BC ==
[~2020-02-08 12:20] MED LIST changes: -ASPI81TA85 PO; +ASPI81TA86 PO; +LIDOCAINE 2% 100MG/5ML SDV (FOR ANES.) As Ordered ONE; -LR 1,000 ML IV ONE; -MIDAZOLAM INJ 2MG/2ML VIAL (J2250 PER 1MG) As Ordered ONE; -ONDANSETRON 4MG/2ML VIAL As Ordered ONE; -ROCURONIUM BROMIDE 50 MG/5 ML VIAL As Ordered ONE; -SUGAMMADEX SODIUM 500 MG/5 ML VIAL (BRIDION) As Ordered ONE; -dexameTHASONE 4 MG/ML 1ML VIAL (J1100 PER 1MG) As Ordered ONE; -fentaNYL 100 MCG/2 ML INJECTION (J3010) As Ordered ONE
--- NOTE | 2020-03-12 11:28 | ROOR ---
Patient Name: Ralph Gamino Procedure Date: 02/08/2020 12:06 PM Date of : 1960 Age: 59 Room: [facility] Gender: Male Note Status: Lung Puller Override Procedure: Colonoscopy Indications: High risk colon cancer surveillance: Personal history of colonic polyps Providers: Luis ISAAC MD Referring MD: Fabiola Haddad NP Requesting Provider: Medicines: Monitored Anesthesia Care Complications: No immediate complications. Procedure: Pre-Anesthesia Assessment: - The heart rate, respiratory rate, oxygen saturations, blood pressure, adequacy of pulmonary ventilation, and response to care were monitored throughout the procedure. The Colonoscope was introduced through the anus and advanced to the cecum, identified by appendiceal orifice and ileocecal valve. The colonoscopy was performed without difficulty. The patient tolerated the procedure well. The quality of the bowel preparation was good. Findings: The perianal and digital rectal examinations were normal. Two sessile polyps were found in the ascending colon. The polyps were 5 to 6 mm in size. These polyps were removed with a cold snare. Resection and retrieval were complete. Two sessile polyps were found in the sigmoid colon. The polyps were 5 to 9 mm in size. These polyps were removed with a cold snare. Resection and retrieval were complete. To prevent bleeding after the polypectomy, one hemostatic clip was successfully placed. There was no bleeding at the end of the procedure. Small Internal Hemorrhoids. Impression: - Two 5 to 6 mm polyps in the ascending colon, removed with a cold snare. Resected and retrieved. - Two 5 to 9 mm polyps in the sigmoid colon, removed with a cold snare. Resected and retrieved. Clip was placed. - Small Internal Hemorrhoids. - The examination was otherwise normal on direct and retroflexion views. Recommendation: - Repeat colonoscopy in 3 years for surveillance. Luis ISAAC MD 02/08/2020 1:29:23 PM Number of Addenda: 0 Note Initiated On: 02/08/2020 12:06 PM Estimated Blood Loss: Estimated blood loss: none.
== END 2020-02-08 14:05 | disposition home or self-care (01) ==
LOC: M SDC 12:20
PROVIDERS: ATTEND Internal Medicine Gastroenterology
DX: Z12.11 Encounter for screening for malignant neoplasm of colon (principal); Z86.010 Personal history of colon polyps; K63.5 Polyp of colon; K64.8 Other hemorrhoids; E11.9 Type 2 diabetes mellitus without complications; Z79.82 Long term (current) use of aspirin; Z79.84 Long term (current) use of oral hypoglycemic drugs; Z79.899 Other long term (current) drug therapy; Z88.8 Allergy status to other drugs, medicaments and biological substances

== ENCOUNTER → 2020-03-21 | Outpatient (CLI) | payer BC ==
[~2020-03-21] MED LIST changes: -LIDOCAINE 2% 100MG/5ML SDV (FOR ANES.) As Ordered ONE; -propofoL 200 MG/20 ML VIAL As Ordered ONE
[2020-03-21 07:31] LABS: HEMOGLOBIN A1c 6.6 %
[2020-03-21 07:34] LABS: ALBUMIN 3.9 GM/DL (3.2-5.2); ALT/SGPT 75 U/L (12-78); BILIRUBIN,TOTAL 0.3 MG/DL (0.2-1.0); BLOOD UREA NITROGEN 20 MG/DL (7-18); CALCIUM LEVEL 9.9 MG/DL (8.5-10.1); CARBON DIOXIDE LEVEL 29 MEQ/L (21-32); CHLORIDE LEVEL 107 MEQ/L (98-107); CREATININE FOR GFR 0.89 MG/DL (0.70-1.30); GLOMERULAR FILTRATION RATE > 60.0 (>56); GLUCOSE, FASTING 98 MG/DL (70-100); POTASSIUM SERUM 4.2 MEQ/L (3.5-5.1); SODIUM LEVEL 138 MEQ/L (136-145); TOTAL PROTEIN 7.2 GM/DL (6.4-8.2)
[2020-03-21 11:23] LABS: TOTAL 25(OH) VITAMIN D 25.4 NG/ML (30.0-100.0)
== END ==
LOC: M LAB 06:26
PROVIDERS: ATTEND Nurse Practitioner Family
DX: E55.9 Vitamin D deficiency, unspecified (principal); E11.9 Type 2 diabetes mellitus without complications

== ENCOUNTER → 2020-06-04 | Outpatient (CLI) | payer BC ==
[2020-06-04 08:10] LABS: ALBUMIN 3.9 GM/DL (3.2-5.2); ALT/SGPT 75 U/L (12-78); BILIRUBIN,TOTAL 0.3 MG/DL (0.2-1.0); BLOOD UREA NITROGEN 23 MG/DL (7-18); CALCIUM LEVEL 9.8 MG/DL (8.5-10.1); CARBON DIOXIDE LEVEL 26 MEQ/L (21-32); CHLORIDE LEVEL 107 MEQ/L (98-107); CHOLESTEROL LEVEL 134 MG/DL (<200); CHOLESTEROL RISK RATIO 2.061 (<5); CREATININE FOR GFR 0.92 MG/DL (0.70-1.30); GLOMERULAR FILTRATION RATE > 60.0 (>56); GLUCOSE, FASTING 97 MG/DL (70-100); HDL CHOLESTEROL 65 MG/DL (>40); LDL CHOLESTEROL 42 MG/DL (<100); NON-HDL-C 69 MG/DL; POTASSIUM SERUM 3.9 MEQ/L (3.5-5.1); SODIUM LEVEL 137 MEQ/L (136-145); TOTAL PROTEIN 7.2 GM/DL (6.4-8.2); TRIGLYCERIDES LEVEL 134 MG/DL (<150)
[2020-06-04 08:15] LABS: HEMOGLOBIN A1c 6.4 %
[2020-06-04 08:20] LABS: MAU/CREAT RATIO 56.3 MCG/MG (0.0-30.0)
== END ==
LOC: M LAB 06:50
PROVIDERS: ATTEND Nurse Practitioner Family
DX: E55.9 Vitamin D deficiency, unspecified (principal); E78.00 Pure hypercholesterolemia, unspecified; E11.9 Type 2 diabetes mellitus without complications

== ENCOUNTER → 2020-06-20 | Outpatient (CLI) | payer BC ==
--- NOTE | 2020-06-21 09:54 | REP ---
INDICATION: CALCULUS OF KIDNEY STONE PROTOCOL COMPARISON: None TECHNIQUE: Axial noncontrast images from the lung bases to the pubic symphysis with coronal and sagittal reformations. This CT examination was performed using the following dose reduction techniques: Automated exposure control, adjustment of mA and/or kv according to the patient's size, and use of iterative reconstruction technique. FINDINGS: Lung bases demonstrate moderate to advanced chronic fibrosis with scarring and bronchiectasis similar to prior examination. Left kidney demonstrates moderate, grade 3 hydronephrosis and proximal hydroureter secondary to a 3.5 mm obstructing calculus in the proximal ureter (images 80-82) along with few smaller nonobstructing intrarenal calculi measuring up to 3 mm. Right kidney includes 3 mm nonobstructing lower pole calculus without hydronephrosis. Hepatomegaly and hepatosteatosis is appreciated. Spleen, pancreas, gallbladder, and right adrenal gland are normal. Small left adrenal adenomatous changes remains stable. The enteric system is without obstruction or acute inflammatory process. Pelvis demonstrates normal bladder and mildly prominent prostate gland. No ascites. No free air. No adenopathy. Abdominal aorta demonstrates atherosclerotic changes without aneurysm. Musculoskeletal structures demonstrate degenerative changes involving the lumbosacral spine and sacroiliac joints. IMPRESSION: 1. Moderate left-sided obstructive hydronephrosis and proximal hydroureter with a 3.5 mm calculus in the proximal ureter. Small nonobstructing bilateral intrarenal calculi noted. 2. Mild stable prostatomegaly. 3. Further nonacute findings as described above. <Electronically signed by Angel Lares > 06/21/20 [id number]
== END ==
LOC: M RAD 16:39
PROVIDERS: ATTEND Internal Medicine Nephrology
DX: N20.0 Calculus of kidney (principal)

== ENCOUNTER → 2020-07-23 | Outpatient (CLI) | payer BC ==
[~2020-07-23] MED LIST changes: +ISOS1TAB36 PO; -ISOS60TA2 PO
--- NOTE | 2020-07-24 09:34 | REP ---
INDICATION: NEPHROLITHIASIS COMPARISON: None. TECHNIQUE: Supine view of the abdomen and pelvis. FINDINGS: No obvious urinary tract calcifications are identified although evaluation is somewhat limited due to overlying bowel gas and the left ureteral and small bilateral intrarenal calculi on CT dated 06/20/2020 are not visible by x-ray.. The bowel gas pattern is nonspecific. No organomegaly. No obvious abnormal calcifications. Skeletal structures are intact/stable. IMPRESSION: Limited evaluation for urinary tract calcifications. <Electronically signed by Angel Lares > 07/24/20 0991
--- NOTE | 2020-07-24 10:49 | REP ---
INDICATION: KIDNEY STONES, US 1ST THEN XR COMPARISON: CT dated 06/20/2020 TECHNIQUE: Real time nelson scale ultrasound examination using curved array transducer. FINDINGS: Right kidney measures 12.4 x 6.5 x 5.6 cm (RI 0.52) and includes 1.3 cm midpole cyst and 5 mm lower pole nonobstructing calculus. Left kidney measures 12.6 x 5.2 x 6.5 cm (RI 0.59) and demonstrates severe hydroureteronephrosis with a 10 mm obstructing calculus in the mid ureter. The bladder is normal in appearance with right ureteral jet. No left ureteral jet identified and consistent with the above suspected obstruction. IMPRESSION: 1. Left-sided obstructive uropathy. 10 mm calculus in the mid left ureter. 2. Right kidney as described above. <Electronically signed by Angel Lares > 07/24/20 1046
== END ==
LOC: M RAD 14:46
PROVIDERS: ATTEND Nurse Practitioner Family
DX: N13.2 Hydronephrosis with renal and ureteral calculous obstruction (principal)

== ENCOUNTER → 2020-08-22 | Outpatient (CLI) | payer BC ==
[~2020-08-22] MED LIST changes: +BAYE81TA10 PO; +LAC-LOT2 EXT; +LOSA25TA14 PO; +PRED10TA2 PO
--- NOTE | 2020-08-22 08:09 | REP ---
INDICATION: CALCULUS OF KIDNEY, PREOP TESTING LAB 1ST EKG 2ND XR 3RD COMPARISON: 07/27/2019 TECHNIQUE: PA and lateral. FINDINGS: The mediastinum and cardiac silhouette are normal. The lung solis suggest subtle increased perihilar and lower lobe interstitial prominence. No discrete focal consolidation, effusion, or pneumothorax. The skeletal structures are intact and normal. IMPRESSION: Possibly chronic increased perihilar and lower lobe interstitial changes similar to prior examination. No focal consolidation or effusion. <Electronically signed by Angel Lares > 08/22/20 0803
[2020-08-22 08:17] LABS: APPEARANCE, URINE CLEAR (CLEAR); BACTERIA, URINE AUTO NEGATIVE (NEGATIVE); BILIRUBIN, URINE AUTO NEGATIVE (NEGATIVE); BLOOD, URINE BLOOD NEGATIVE (NEGATIVE); COLOR, URINE YELLOW (YELLOW); GLUCOSE, URINE (UA) AUTO NEGATIVE (NEGATIVE); KETONE, URINE AUTO NEGATIVE (NEGATIVE); LEUKOCYTE ESTERASE, URINE AUTO TRACE (NEGATIVE); MUCUS, URINE SMALL (NEGATIVE); NITRITE, URINE AUTO NEGATIVE (NEGATIVE); PROTEIN, URINE AUTO NEGATIVE (NEGATIVE); RBC, URINE AUTO 10 /HPF (0-3); SPECIFIC GRAVITY URINE AUTO 1.015 (1.002-1.035); SQUAMOUS EPITHELIAL CELL UR AU 0 /HPF (0-6); UROBILINOGEN, URINE AUTO 0.2 mg/dL (0.0-2.0); WBC, URINE AUTO 9 /HPF (0-3)
[2020-08-22 08:19] LABS: HEMATOCRIT 44.6 % (42.0-52.0); HEMOGLOBIN 13.8 g/dl (13.5-17.5); MEAN CORPUSCULAR HEMOGLOBIN 27.3 pg (27.0-33.0); MEAN CORPUSCULAR HGB CONC 30.9 g/dl (32.0-36.5); MEAN CORPUSCULAR VOLUME 88.3 fl (80.0-96.0); PLATELET COUNT, AUTOMATED 259 10^3/uL (150-450); RED BLOOD COUNT 5.05 10^6/uL (4.30-6.10); WHITE BLOOD COUNT 6.7 10^3/uL (4.0-10.0)
[2020-08-22 08:29] LABS: INR 0.84; PROTHROMBIN TIME 11.7 SECONDS (12.5-14.3)
[2020-08-22 08:30] LABS: PARTIAL THROMBOPLASTIN TIME 27.8 SECONDS (24.2-38.5)
[2020-08-22 08:41] LABS: BLOOD UREA NITROGEN 16 MG/DL (7-18); CARBON DIOXIDE LEVEL 26 MEQ/L (21-32); CHLORIDE LEVEL 105 MEQ/L (98-107); CREATININE FOR GFR 0.94 MG/DL (0.70-1.30); GLOMERULAR FILTRATION RATE > 60.0 (>56); GLUCOSE, FASTING 83 MG/DL (70-100); POTASSIUM SERUM 4.1 MEQ/L (3.5-5.1); SODIUM LEVEL 138 MEQ/L (136-145)
--- NOTE | 2020-08-22 20:21 | ECGEPIP ---
[facility] Test Date: 2020-08-22 Pat Name: HELDER MOISE Department: Room: - Gender: Male [employer]: : 1960 Requested By: Manjit THOMPSON Order Number: [id number] Reading MD: Stephan Mejia Measurements Intervals Bruner Rate: 62 P: 40 ME: 156 QRS: 20 QRSD: 92 T: 0 QT: 386 QTc: 391 Interpretive Statements Normal sinus rhythm Early repolarization No significant change when compared to prior tracing of 07/27/2019 Electronically Signed on 08-22-2020 20:21:12 EST by Stephan Mejia
== END ==
LOC: M LAB 07:07
PROVIDERS: ATTEND Nurse Practitioner Family
DX: Z01.818 Encounter for other preprocedural examination (principal); N20.0 Calculus of kidney

== ENCOUNTER → 2020-08-27 | Outpatient (CLI) | payer BC | LOC: M LAB 06:16 | PROVIDERS: ATTEND Family Medicine | DX: Z51.81 Encounter for therapeutic drug level monitoring (principal); Z79.52 Long term (current) use of systemic steroids ==

== ENCOUNTER → 2020-08-27 | Outpatient (CLI) | payer BC | LOC: M LABSMTC 10:07 | PROVIDERS: ATTEND Anesthesiology | DX: Z01.812 Encounter for preprocedural laboratory examination (principal); Z20.822 Contact with and (suspected) exposure to COVID-19 ==

== ENCOUNTER 2020-09-01 06:23 | Day surgery (SDC) | payer BC ==
[~2020-09-01] VITALS: Ht 190.5 cm; Wt 103.9 kg
[~2020-09-01 06:23] MED LIST changes: +LIDOCAINE 1% MDV 20ML VIAL SQ PRN
[2020-09-01] MEDS ORDERED: LR 1,000 ML IV ONE (06:30)
[2020-09-01] MEDS ORDERED: ceFAZolin SOD 2 GM in IV 1 EA IV ONE (06:30)
[2020-09-01] MEDS ORDERED: AMPI500C9 PO (06:47)
[2020-09-01] MEDS ORDERED: CONRAY-60 60% 50ML VIAL (Q9961) As Ordered ONE (07:11)
[2020-09-01] MEDS ORDERED: LIDOCAINE 2% 100MG/5ML SDV (FOR ANES.) As Ordered ONE (07:16)
[2020-09-01] MEDS ORDERED: propofoL 200 MG/20 ML VIAL As Ordered ONE (07:16)
[2020-09-01] MEDS ORDERED: MIDAZOLAM INJ 2MG/2ML VIAL (J2250 PER 1MG) As Ordered ONE (07:17)
[2020-09-01] MEDS ORDERED: fentaNYL 100 MCG/2 ML INJECTION (J3010) As Ordered ONE (07:18)
[2020-09-01] MEDS ORDERED: ROCURONIUM BROMIDE 50 MG/5 ML VIAL As Ordered ONE (07:34)
[2020-09-01] MEDS ORDERED: dexameTHASONE 4 MG/ML 1ML VIAL (J1100 PER 1MG) As Ordered ONE (07:38)
[2020-09-01] MEDS ORDERED: KETOROLAC 60MG 2ML VIAL As Ordered ONE (08:02)
[2020-09-01] MEDS ORDERED: ONDANSETRON 4MG/2ML VIAL As Ordered ONE (08:02)
[2020-09-01] MEDS ORDERED: SUGAMMADEX SODIUM 500 MG/5 ML VIAL (BRIDION) As Ordered ONE (08:16)
--- NOTE | 2020-09-01 08:43 | REP ---
INDICATION: LEFT, CYSTO, URETER, LASER LITHO, STENT. COMPARISON: KUB and renal ultrasound 07/23/2020. TECHNIQUE: Four images from C-arm fluoroscopy provided to Dr. Nicholson of the urology division are reviewed. FINDINGS: Initial image shows a wire extending up into the renal pelvis the 2nd image demonstrating ureteral catheter over the wire and small amounts of contrast in the renal collecting system which shows dilatation of the calices. Third image demonstrates a slight further upward progression of the catheter over wire into the lower aspect of the renal pelvis. The 4th image shows a double pigtail stent in the left ureter coiled proximally and upper pole calyx and distally in the renal pelvis. IMPRESSION: 1. Status post left internal ureteral double pigtail stent placement. 2. Fluoroscopy time: 14 seconds. <Electronically signed by Jermaine Martines > 09/01/20 [id number]
[2020-09-01] MEDS ORDERED: ONDANSETRON 4MG/2ML VIAL IV PRN (08:55)
[2020-09-01] MEDS ORDERED: PERCOCET 5MG/325MG TAB PO PRN ×2 (08:55)
[2020-09-01] MEDS ORDERED: LR 1,000 ML IV SCH (08:55)
[2020-09-01] MEDS ORDERED: fentaNYL 100 MCG/2 ML INJECTION (J3010) IV PRN (08:55)
[2020-09-01] MEDS ORDERED: METOCLOPRAMIDE INJ 10MG/2ML VIAL (J2765 PER 1) IV PRN (08:55)
[2020-09-01 09:50] VITALS: BP 155/80
--- NOTE | 2020-09-01 09:58 | RO ---
OPERATIVE NOTE DATE OF OPERATION: 09/01/2020 PREOPERATIVE DIAGNOSIS: Left ureteral stone. POSTOPERATIVE DIAGNOSIS: Left ureteral stone. PROCEDURE: Cystoscopy, left ureteroscopy with basket extraction of stone, left retrograde pyelogram with intraop interpretation of images, left ureteral stent placement. SURGEON: Price Nicholson MD BAR HOSTESS: None. ANESTHESIA: General. OPERATIVE INDICATIONS: This is a 59-year-old male with a history of kidney stones who was found to have an obstructing approximately 1 cm mid left ureteral stone on recent ultrasound as well as CT scan. He was brought to the operating room today for treatment. DESCRIPTION OF PROCEDURE: The patient was brought to the operating room and general anesthesia induced. Prophylactic antibiotics were infused. He was placed in dorsal lithotomy position and prepped and draped in usual sterile fashion. A rigid cystoscope was inserted in the urethral meatus and advanced to the bladder. I advanced a guidewire up the left collecting system. Of note in the mid ureter the wire got hung up and eventually I was able to advance it all the way into the left kidney. I then advanced ureteral access sheath up the left collecting system. I went up the access sheath with a flexible ureteroscope and of note there was a lot of edema in the mid left ureter. Of note, I did not see a stone. I then went into the left kidney and inside the left kidney the 1 cm stone was seen. There were also a few other additional stone fragments in the upper pole calyces. I utilized the basket to extract all the stones from the left kidney. Once satisfied all the stones were gone a retrograde pyelogram was performed and notable for severe left hydronephrosis with no extravasation. I then withdrew the ureteroscope along with access sheath and no additional stones were seen inside the ureter. I then utilized a guidewire to advance a 6-Divehi x 22-32 cm JJ ureteral stent into the left collecting system. The wire was removed and there were adequate curls of stent in left renal pelvis and in the bladder. The bladder was emptied of all fluids and this marked the conclusion of the procedure. The patient was taken out of dorsal lithotomy position, awakened from anesthesia and transported to the recovery room in stable condition. ESTIMATED BLOOD LOSS: 5 mL. COMPLICATIONS: None. SPECIMENS: Kidney stones. PLAN: The patient will follow up in urology clinic in approximately 2-3 weeks for stent removal. [facility]
== END 2020-09-01 09:50 | disposition home or self-care (01) ==
LOC: M SDC 06:23
PROVIDERS: ATTEND Urology
DX: N20.0 Calculus of kidney (principal); E11.9 Type 2 diabetes mellitus without complications; I10 Essential (primary) hypertension; J84.10 Pulmonary fibrosis, unspecified; E78.00 Pure hypercholesterolemia, unspecified; Z79.82 Long term (current) use of aspirin; Z79.52 Long term (current) use of systemic steroids; Z87.891 Personal history of nicotine dependence
CPT/HCPCS: 52332; 52352; 74420; 82365; 88300; C1769; C1894; C2617; J0690; J1100; J1885; J2250; J2405; J3010; Q9961

== ENCOUNTER → 2020-10-07 | Outpatient (CLI) | payer BC ==
[~2020-10-07] MED LIST changes: +AMPI500C9 PO; -LIDOCAINE 1% MDV 20ML VIAL SQ PRN
--- NOTE | 2020-10-09 02:32 | REP ---
INDICATION: INTERSTITIAL PULMONARY DISEASE COMPARISON: 09/24/2019 TECHNIQUE: Axial noncontrast images from the thoracic inlet to the upper abdomen obtained in inspiration, expiration, prone and supine positioning using high-resolution technique. Coronal and sagittal reformations as well as coronal MIP images obtained. This CT examination was performed using the following dose reduction techniques: Automated exposure control, adjustment of mA and/or kv according to the patient's size, and use of iterative reconstruction technique. FINDINGS: Moderate diffuse bronchiectasis and chronic interstitial changes along with scattered peribronchial areas of ground-glass opacity and fibrosis involving lower lobes, lingula and right middle lobe is again appreciated. Allowing for subtle variation in technique, the findings are relatively similar and without significant progression. No acute focal consolidation. No obvious nodule or mass lesion. No effusion or pneumothorax. Nonspecific mediastinal and hilar lymph nodes measuring up to approximately 14 mm short axis diameter are again noted and unchanged. Further evaluation of the mediastinum demonstrates normal thoracic aorta, pulmonary vasculature, and heart/pericardium. No evidence for thoracic aortic aneurysm or cardiomegaly. No pericardial effusion. The surrounding musculoskeletal structures demonstrate age-related degenerative changes without focal osseous abnormality. IMPRESSION: 1. Diffuse interstitial pulmonary fibrosis relatively unchanged from prior examination. No significant progression noted. 2. No new acute mediastinal or pleuroparenchymal process identified. <Electronically signed by Angel Lares > 10/09/20 0229
== END ==
LOC: M RAD 12:42
PROVIDERS: ATTEND Internal Medicine Pulmonary Disease
DX: J84.9 Interstitial pulmonary disease, unspecified (principal)

== ENCOUNTER → 2021-01-07 | Outpatient (CLI) | payer BC ==
[~2021-01-07] MED LIST changes: +ERGO500029 PO; -VITA50005 PO
[2021-01-07 08:09] LABS: ALBUMIN 3.9 GM/DL (3.2-5.2); ALT/SGPT 76 U/L (12-78); BILIRUBIN,TOTAL 0.4 MG/DL (0.2-1.0); BLOOD UREA NITROGEN 17 MG/DL (7-18); CALCIUM LEVEL 10.1 MG/DL (8.8-10.2); CARBON DIOXIDE LEVEL 26 MEQ/L (21-32); CHLORIDE LEVEL 106 MEQ/L (98-107); CREATININE FOR GFR 0.84 MG/DL (0.70-1.30); GLOMERULAR FILTRATION RATE > 60.0 (>49); GLUCOSE, FASTING 114 MG/DL (70-100); POTASSIUM SERUM 4.1 MEQ/L (3.5-5.1); SODIUM LEVEL 137 MEQ/L (136-145); TOTAL PROTEIN 7.2 GM/DL (6.4-8.2)
[2021-01-07 09:14] LABS: HEMOGLOBIN A1c 6.5 %
== END ==
LOC: M LAB 06:47
PROVIDERS: ATTEND Nurse Practitioner Family
DX: E11.9 Type 2 diabetes mellitus without complications (principal)

== ENCOUNTER → 2021-03-30 | Outpatient (REF) | payer BC | LOC: M LAB REF 17:39 | PROVIDERS: ATTEND Internal Medicine Nephrology | DX: E83.52 Hypercalcemia (principal) ==

== ENCOUNTER → 2021-04-15 | Outpatient (CLI) | payer BC ==
--- NOTE | 2021-04-15 11:43 | REP ---
INDICATION: CALCULUS OF KIDNEY COMPARISON: None. TECHNIQUE: Supine views of the abdomen and pelvis. FINDINGS: Bowel gas pattern is nonspecific and without obstruction or perforation. No organomegaly. No abnormal calcifications. Skeletal structures intact. IMPRESSION: Normal abdominal radiograph. No obvious urinary tract calcifications are appreciated. <Electronically signed by Angel Lares > 04/15/21 2115
== END ==
LOC: M RAD 11:21
PROVIDERS: ATTEND Urology
DX: N20.0 Calculus of kidney (principal)

== ENCOUNTER → 2021-05-05 | Outpatient (REF) | LOC: M EMP 09:50 | PROVIDERS: ATTEND Family Medicine | DX: Z20.822 Contact with and (suspected) exposure to COVID-19 (principal) ==

== ENCOUNTER 2021-05-06 08:00 | Outpatient (CLI) | payer BC ==
[~2021-05-06] VITALS: Ht 190.5 cm; Wt 102.0 kg
[~2021-05-06 08:00] MED LIST changes: +ALBUTEROL 90 MCG/ACT 8GM HFA INHALER INH PRN; +ALBUTEROL SULFATE 2.5 MG/0.5 ML INH NEB SOLN INH PRN; +CASIRIVIMAB/IMDEVIMAB 1,200 MG in NS 250 ML IV ONE; +EPINEPHrine INJ 1 MG/ML 1ML AMP IM PRN; +NS 1,000 ML IV SCH; +diphenhydrAMINE 50MG/ML VIAL (J1200) IV PRN; +methylPREDNISolone 125MG 2ML VIAL IV PRN
[2021-05-06 09:19] VITALS: BP 139/75
[2021-05-06 09:49] VITALS: BP 143/78
[2021-05-06 10:19] VITALS: BP 146/69
[2021-05-06 11:19] VITALS: BP 134/74
== END 2021-05-06 11:19 | disposition home or self-care (01) ==
LOC: M OPCLI4PR 08:00
PROVIDERS: ATTEND Nurse Practitioner Adult Health
DX: U07.1 COVID-19 (principal)
CPT/HCPCS: 96361; M0243

== ENCOUNTER → 2021-08-12 | Outpatient (CLI) | payer BC ==
[~2021-08-12] MED LIST changes: -ALBUTEROL 90 MCG/ACT 8GM HFA INHALER INH PRN; -ALBUTEROL SULFATE 2.5 MG/0.5 ML INH NEB SOLN INH PRN; -CASIRIVIMAB/IMDEVIMAB 1,200 MG in NS 250 ML IV ONE; -EPINEPHrine INJ 1 MG/ML 1ML AMP IM PRN; +LOSA25TA13 PO; -LOSA25TA14 PO; -NS 1,000 ML IV SCH; -diphenhydrAMINE 50MG/ML VIAL (J1200) IV PRN; -methylPREDNISolone 125MG 2ML VIAL IV PRN
[2021-08-12 07:37] LABS: ALBUMIN 3.9 GM/DL (3.2-5.2); ALT/SGPT 77 U/L (12-78); BILIRUBIN,TOTAL 0.3 MG/DL (0.2-1.0); BLOOD UREA NITROGEN 23 MG/DL (7-18); CALCIUM LEVEL 10.1 MG/DL (8.8-10.2); CARBON DIOXIDE LEVEL 28 MEQ/L (21-32); CHLORIDE LEVEL 107 MEQ/L (98-107); CHOLESTEROL LEVEL 137 MG/DL (<200); CHOLESTEROL RISK RATIO 1.756 (<5); CREATININE FOR GFR 0.91 MG/DL (0.70-1.30); GLOMERULAR FILTRATION RATE > 60.0 (>49); GLUCOSE, FASTING 92 MG/DL (70-100); HDL CHOLESTEROL 78 MG/DL (>40); LDL CHOLESTEROL 49 MG/DL (<100); NON-HDL-C 59 MG/DL; POTASSIUM SERUM 4.5 MEQ/L (3.5-5.1); SODIUM LEVEL 141 MEQ/L (136-145); TOTAL PROTEIN 7.4 GM/DL (6.4-8.2); TRIGLYCERIDES LEVEL 49 MG/DL (<150)
[2021-08-12 07:44] LABS: MALB URINE SIEMENS 24.7 MG/L
[2021-08-12 07:54] LABS: HEMOGLOBIN A1c 6.3 %
== END ==
LOC: M LAB 06:43
PROVIDERS: ATTEND Nurse Practitioner Adult Health
DX: Z12.5 Encounter for screening for malignant neoplasm of prostate (principal)
CPT/HCPCS: 36415; 80053; 80061; 82043; 82306; 83036; G0103

== ENCOUNTER → 2022-02-05 | Outpatient (CLI) | payer BC ==
[2022-02-05 08:02] LABS: ALBUMIN 3.5 GM/DL (3.2-5.2); ALT/SGPT 75 U/L (12-78); BILIRUBIN,TOTAL 0.3 MG/DL (0.2-1.0); BLOOD UREA NITROGEN 19 MG/DL (7-18); CALCIUM LEVEL 9.7 MG/DL (8.8-10.2); CARBON DIOXIDE LEVEL 26 MEQ/L (21-32); CHLORIDE LEVEL 107 MEQ/L (98-107); CHOLESTEROL LEVEL 108 MG/DL (<200); CHOLESTEROL RISK RATIO 1.661 (<5); CREATININE FOR GFR 0.86 MG/DL (0.70-1.30); GLOMERULAR FILTRATION RATE > 60.0 (>49); GLUCOSE, FASTING 103 MG/DL (70-100); HDL CHOLESTEROL 65 MG/DL (>40); LDL CHOLESTEROL 35 MG/DL (<100); NON-HDL-C 43 MG/DL; SODIUM LEVEL 137 MEQ/L (136-145); TOTAL PROTEIN 7.2 GM/DL (6.4-8.2); TRIGLYCERIDES LEVEL 42 MG/DL (<150)
[2022-02-05 08:36] LABS: HEMOGLOBIN A1c 6.2 %
== END ==
LOC: M LAB 06:43
PROVIDERS: ATTEND Nurse Practitioner Adult Health
DX: E11.22 Type 2 diabetes mellitus with diabetic chronic kidney disease (principal); E78.00 Pure hypercholesterolemia, unspecified

== ENCOUNTER → 2022-04-06 | Outpatient (CLI) | payer BC | LOC: M RAD 08:40 | PROVIDERS: ATTEND Internal Medicine Nephrology | DX: E21.0 Primary hyperparathyroidism (principal) | CPT/HCPCS: 78803; A9500 ==

== ENCOUNTER → 2022-04-16 | Outpatient (CLI) | payer BC | LOC: M RAD 06:26 | PROVIDERS: ATTEND Urology | DX: N20.0 Calculus of kidney (principal) ==

== ENCOUNTER → 2022-06-13 | Outpatient (REF) ==
[2022-06-13 13:27] LABS: RSV AMPLIFICATION NEGATIVE (NEGATIVE)
== END ==
LOC: M LABSMTC 11:13
PROVIDERS: ATTEND Family Medicine
DX: Z20.818 Contact with and (suspected) exposure to other bacterial communicable diseases (principal)

== ENCOUNTER → 2022-08-06 | Outpatient (CLI) | payer BC ==
[2022-08-06 08:03] LABS: CREATININE, URINE 156.5 MG/DL; MAU/CREAT RATIO 16.6 MCG/MG (0.0-30.0)
[2022-08-06 08:04] LABS: ALBUMIN 3.6 G/DL (3.2-5.2); ALKALINE PHOSPHATASE 120 U/L (46-116); ALT/SGPT 64 U/L (7.0-40); AST/SGOT 50 U/L (<34); BILIRUBIN,TOTAL 0.3 MG/DL (0.3-1.2); BLOOD UREA NITROGEN 16 MG/DL (9-23); CARBON DIOXIDE LEVEL 28 MMOL/L (20-31); CHLORIDE LEVEL 104 MMOL/L (98-107); CHOLESTEROL LEVEL 128 MG/DL (<200); CHOLESTEROL RISK RATIO 2.12 (<5); CREATININE FOR GFR 0.81 MG/DL (0.70-1.30); GLOMERULAR FILTRATION RATE > 60.0 (>49); GLUCOSE, FASTING 90 MG/DL (74-106); HDL CHOLESTEROL 60.1 MG/DL (>40); LDL CHOLESTEROL 51.3 MG/DL (<100); NON-HDL-C 68 MG/DL; POTASSIUM SERUM 4.2 MMOL/L (3.5-5.1); SODIUM LEVEL 138 MMOL/L (136-145); TOTAL PROTEIN 7.4 G/DL (5.7-8.2); TRIGLYCERIDES LEVEL 83 MG/DL (<150)
[2022-08-06 15:06] LABS: PTH INTACT 79.7 PG/ML (18.5-88.0)
== END ==
LOC: M LAB 06:41
PROVIDERS: ATTEND Nurse Practitioner Adult Health
DX: E11.22 Type 2 diabetes mellitus with diabetic chronic kidney disease (principal); E78.00 Pure hypercholesterolemia, unspecified; E83.52 Hypercalcemia

== ENCOUNTER → 2022-08-25 | Outpatient (CLI) | payer BC | LOC: M RAD 06:52 | PROVIDERS: ATTEND Nurse Practitioner Adult Health | DX: K76.0 Fatty (change of) liver, not elsewhere classified (principal); K82.4 Cholesterolosis of gallbladder; R74.8 Abnormal levels of other serum enzymes ==

== ENCOUNTER → 2023-02-18 | Outpatient (CLI) | payer BC ==
[2023-02-18 07:34] LABS: CHOLESTEROL RISK RATIO 2.29 (<5); HDL CHOLESTEROL 53.5 MG/DL (>40); LDL CHOLESTEROL 56.7 MG/DL (<100); NON-HDL-C 69.5 MG/DL
== END ==
LOC: M LAB 06:24
PROVIDERS: ATTEND Nurse Practitioner Adult Health
DX: E11.22 Type 2 diabetes mellitus with diabetic chronic kidney disease (principal); Z12.5 Encounter for screening for malignant neoplasm of prostate; E78.00 Pure hypercholesterolemia, unspecified
CPT/HCPCS: 36415; 80061; 83036; G0103

== ENCOUNTER → 2023-04-11 | Outpatient (CLI) | payer BC | LOC: M LAB 15:38 | PROVIDERS: ATTEND Urology | DX: N20.0 Calculus of kidney (principal) ==

== ENCOUNTER → 2024-01-11 | Outpatient (CLI) | payer BC ==
[2024-01-11 08:21] LABS: HEMOGLOBIN A1c 5.7 % (4.0-6.0)
[2024-01-11 08:40] LABS: ALBUMIN 3.5 G/DL (3.2-5.2); ALKALINE PHOSPHATASE 98 U/L (46-116); ALT/SGPT 32 U/L (7.0-40); AST/SGOT 16 U/L (<34); BILIRUBIN,TOTAL 0.4 MG/DL (0.3-1.2); BLOOD UREA NITROGEN 17 MG/DL (9-23); CARBON DIOXIDE LEVEL 28 MMOL/L (20-31); CHLORIDE LEVEL 109 MMOL/L (98-107); CHOLESTEROL LEVEL 147 MG/DL (<200); CHOLESTEROL RISK RATIO 2.56 (<5); GLOMERULAR FILTRATION RATE > 60.0 (>49); GLUCOSE, FASTING 88 MG/DL (74-106); HDL CHOLESTEROL 57.4 MG/DL (>40); LDL CHOLESTEROL 75.8 MG/DL (<100); NON-HDL-C 89.6 MG/DL; POTASSIUM SERUM 4.5 MMOL/L (3.5-5.1); SODIUM LEVEL 139 MMOL/L (136-145); TOTAL PROTEIN 6.6 G/DL (5.7-8.2); TRIGLYCERIDES LEVEL 69 MG/DL (<150)
[2024-01-11 08:41] LABS: TOTAL 25(OH) VITAMIN D 22.8 NG/ML (20.0-100.0)
== END ==
LOC: M LAB 06:55
PROVIDERS: ATTEND Nurse Practitioner Adult Health
DX: E11.22 Type 2 diabetes mellitus with diabetic chronic kidney disease (principal); E78.00 Pure hypercholesterolemia, unspecified; E55.9 Vitamin D deficiency, unspecified

== ENCOUNTER → 2024-05-09 | Outpatient (CLI) | payer BC | LOC: M RAD 15:36 | PROVIDERS: ATTEND Urology | DX: N20.0 Calculus of kidney (principal) ==

== ENCOUNTER → 2024-09-19 | Outpatient (CLI) | payer BC ==
[2024-09-19 08:33] LABS: HEMOGLOBIN A1c 5.8 % (4.0-6.0)
[2024-09-19 08:38] LABS: ALBUMIN 3.5 G/DL (3.2-5.2); ALKALINE PHOSPHATASE 80 U/L (40-129); ALT/SGPT 41 U/L (7.0-40); AST/SGOT 30 U/L (<34); BILIRUBIN,TOTAL 0.8 MG/DL (0.3-1.2); BLOOD UREA NITROGEN 11 MG/DL (9-23); CALCIUM LEVEL 9.7 MG/DL (8.3-10.6); CARBON DIOXIDE LEVEL 25 MMOL/L (20-31); CHLORIDE LEVEL 105 MMOL/L (98-107); CHOLESTEROL LEVEL 142 MG/DL (<200); CHOLESTEROL RISK RATIO 1.93 (<5); CREATININE FOR GFR 0.69 MG/DL (0.70-1.30); GLOMERULAR FILTRATION RATE > 60.0 (>49); GLUCOSE, FASTING 102 MG/DL (74-106); HDL CHOLESTEROL 73.3 MG/DL (>40); LDL CHOLESTEROL 58.7 MG/DL (<100); NON-HDL-C 68.7 MG/DL; POTASSIUM SERUM 4.1 MMOL/L (3.5-5.1); SODIUM LEVEL 139 MMOL/L (136-145); TOTAL PROTEIN 7.3 G/DL (5.7-8.2); TRIGLYCERIDES LEVEL 50 MG/DL (<150)
== END ==
LOC: M LAB 07:40
PROVIDERS: ATTEND Nurse Practitioner Adult Health
DX: E11.22 Type 2 diabetes mellitus with diabetic chronic kidney disease (principal); E78.00 Pure hypercholesterolemia, unspecified

== ENCOUNTER 2024-10-04 07:01 | Day surgery (SDC) | payer BC ==
[~2024-10-04] VITALS: Ht 190.5 cm; Wt 87.2 kg
[2024-10-04] MEDS ORDERED: propofoL 200 MG/20 ML VIAL As Ordered ONE (07:42)
[2024-10-04] MEDS ORDERED: GLYCOPYRROLATE INJ 0.2 MG/ML 2 ML VIAL As Ordered ONE (07:42)
[2024-10-04] MEDS ORDERED: LIDOCAINE 2% 100MG/5ML SDV (FOR ANES.) As Ordered ONE (07:43)
[2024-10-04 08:07] VITALS: TEMP 96.2
[2024-10-04 08:20] VITALS: BP 143/78; O2SAT 100
== END 2024-10-04 08:33 | disposition home or self-care (01) ==
LOC: M OPP 07:01
PROVIDERS: ATTEND Internal Medicine Gastroenterology
DX: D12.3 Benign neoplasm of transverse colon (principal); D12.0 Benign neoplasm of cecum; K57.30 Diverticulosis of large intestine without perforation or abscess without bleeding; K64.8 Other hemorrhoids; Z86.0100 Personal history of colon polyps, unspecified; Z79.84 Long term (current) use of oral hypoglycemic drugs; Z79.899 Other long term (current) drug therapy; F17.210 Nicotine dependence, cigarettes, uncomplicated
CPT/HCPCS: 45385; 88305; J1596

== ENCOUNTER → 2025-04-12 | Outpatient (CLI) | payer BC ==
[2025-04-12 08:48] LABS: PSA SCREENING 1.72 NG/ML (< 4.00)
[2025-04-12 08:49] LABS: CREATININE, URINE 109.1 MG/DL; MALB URINE SIEMENS 35.0 MG/L; MAU/CREAT RATIO 32.0 MCG/MG (0.0-30.0)
[2025-04-12 08:53] LABS: ALT/SGPT 37 U/L (7.0-40); AST/SGOT 20 U/L (<34); CALCIUM LEVEL 9.6 MG/DL (8.3-10.6); CARBON DIOXIDE LEVEL 26 MMOL/L (20-31); CHLORIDE LEVEL 105 MMOL/L (98-107); CHOLESTEROL LEVEL 187 MG/DL (<200); CHOLESTEROL RISK RATIO 2.70 (<5); CREATININE FOR GFR 0.77 MG/DL (0.70-1.30); GLOMERULAR FILTRATION RATE > 90.0 (>49); LDL CHOLESTEROL 104.4 MG/DL (<100); NON-HDL-C 117.8 MG/DL; POTASSIUM SERUM 4.3 MMOL/L (3.5-5.1); SODIUM LEVEL 139 MMOL/L (136-145); TOTAL 25(OH) VITAMIN D 15.6 NG/ML (20.0-100.0); TRIGLYCERIDES LEVEL 67 MG/DL (<150)
[2025-04-12 11:01] LABS: ESTIMATED AVERAGE GLUCOSE 126.0 MG/DL (60-110)
== END ==
LOC: M LAB 07:46
PROVIDERS: ATTEND Nurse Practitioner Adult Health
DX: E11.22 Type 2 diabetes mellitus with diabetic chronic kidney disease (principal); E55.9 Vitamin D deficiency, unspecified; Z12.5 Encounter for screening for malignant neoplasm of prostate; E78.00 Pure hypercholesterolemia, unspecified; N18.2 Chronic kidney disease, stage 2 (mild)
CPT/HCPCS: 36415; 80053; 80061; 82043; 82306; 83036; G0103